=== PATIENT | female | born 1950 | race Caucasian/White ===

== ENCOUNTER 2017-01-29 17:41 | Inpatient (IN) | payer OTHER ==
[~2017-01-29] VITALS: Ht 162.6 cm; Wt 104.3 kg
[~2017-01-29 17:41] MED LIST: CLE150 PO; DOCUSATE CALCI100 MG PO; ECO81 PO; FOL1 PO; HYDROCHLOROTHIAZIDE PO; HYDROCODONE; IB PO; ISOSORBIDE DINIT5 M2 PO; KEF500 PO; KLOR-CON20 MEQ PO; LISINOPRIL HCTZ1 TAB PO; MACROBID100 MG PO; METOPROLOL SUCC25 M1 PO; NEU300 PO; PRI20 PO; QUINAPRIL PO; VITAMIN D2000 I1 PO
[2017-01-29 19:03] LABS: BASOPHIL % 0.2 % (0-2); PLATELET COUNT 141 x10^3mcL (130-400); RED CELL DISTRIBUTION WIDTH 12.9 % (11.5-14.5)
[2017-01-29 19:06] LABS: CALCIUM 8.7 mg/dL (8.5-10.1); CARBON DIOXIDE 28.8 mmol/L (21-32); CHLORIDE SERUM 106 mmol/L (98-107); CREATININE SERUM 0.5 mg/dL (0.6-1.0); GFR1 > 60 mL/min; GLUCOSE SERUM 93 mg/dL (74-106); POTASSIUM SERUM 3.4 mmol/L (3.5-5.1); SODIUM SERUM 144 mmol/L (136-145)
[2017-01-29 19:12] LABS: ALBUMIN 3.7 g/dL (3.4-5.0); ALKALINE PHOSPHATASE 124 U/L (46-116); ALT/SGPT 27 U/L (14-59); AST/SGOT 17 U/L (15-37); BILIRUBIN TOTAL 0.8 mg/dL (0.20-1.00); TOTAL PROTEIN, SERUM 7.1 g/dL (6.4-8.2)
[2017-01-29] MEDS ORDERED: NEU300 PO (20:26)
[2017-01-29] MEDS ORDERED: ASPIR 8181 MG PO (20:27)
[2017-01-29] MEDS ORDERED: D3-50001 TAB PO (20:27)
[2017-01-29] MEDS ORDERED: METOPROLOL SUC100 M2 PO (20:27)
[2017-01-29] MEDS ORDERED: NOR10T PO (20:28)
[2017-01-29 21:06] VITALS: BP 160/94
[2017-01-29 21:10] LABS: microscopic required? YES; urine erythrocyte NEGATIVE (NEGATIVE)
[2017-01-29 21:24] LABS: CHOLESTEROL/HDL RATIO 2.6
[2017-01-29 21:26] LABS: AMPHETAMINE QUAL UR NONE DETECTED (NEG <=1000)
[2017-01-29 21:31] LABS: T3 TOTAL 1.09 ng/mL
[2017-01-29 21:34] LABS: FREE T4 1.15 ng/dL (0.76-1.46); FREE THYROXINE INDEX 2.6 ug/dL (1.4-4.5); T4(THYROXINE) 7.9 ug/dL (4.7-13.3)
[2017-01-30 05:33] LABS: BASOPHIL % 0.5 % (0-2); RED CELL DISTRIBUTION WIDTH 12.9 % (11.5-14.5)
[2017-01-30 05:42] VITALS: BP 113/66
[2017-01-30 05:53] LABS: CALCIUM 8.6 mg/dL (8.5-10.1); CARBON DIOXIDE 26.8 mmol/L (21-32); CHLORIDE SERUM 108 mmol/L (98-107); CREATININE SERUM 0.4 mg/dL (0.6-1.0); GFR1 > 60 mL/min; GLUCOSE SERUM 98 mg/dL (74-106); MAGNESIUM 1.9 mg/dL (1.8-2.4); POTASSIUM SERUM 3.6 mmol/L (3.5-5.1); SODIUM SERUM 143 mmol/L (136-145)
[2017-01-30 06:37] LABS: PLATELET COUNT 122 x10^3mcL (130-400)
[2017-01-30 08:20] VITALS: BP 149/72
[2017-01-30 13:18] VITALS: BP 126/63
[2017-01-30 16:46] VITALS: BP 151/62
[2017-01-30 21:36] VITALS: BP 125/56
[2017-01-31 05:33] VITALS: BP 121/50
[2017-01-31 07:04] LABS: BASOPHIL % 0.4 % (0-2); PLATELET COUNT 140 x10^3mcL (130-400); RED CELL DISTRIBUTION WIDTH 12.7 % (11.5-14.5)
[2017-01-31 07:10] LABS: ALBUMIN 3.5 g/dL (3.4-5.0); CALCIUM 8.8 mg/dL (8.5-10.1); CHLORIDE SERUM 107 mmol/L (98-107); CREATININE SERUM 0.5 mg/dL (0.6-1.0); GFR1 > 60 mL/min; GLUCOSE SERUM 112 mg/dL (74-106); POTASSIUM SERUM 3.9 mmol/L (3.5-5.1); SODIUM SERUM 143 mmol/L (136-145)
[2017-01-31 08:06] VITALS: Ht 162.6 cm; Wt 104.3 kg
[2017-01-31 09:15] VITALS: BP 122/50
[2017-01-31] MEDS ORDERED: MOT400 PO (10:02)
[2017-01-31 10:40] VITALS: BP 122/50
== END 2017-01-31 11:49 | disposition home or self-care (01) | DRG 205 ==
LOC: ED 17:41 → DU 20:08 → MU 01-31 09:06
PROVIDERS: Emergency Medicine; Family Medicine; ADMIT Family Medicine
DX: M94.0 Chondrocostal junction syndrome [Tietze] (principal); N17.0 Acute kidney failure with tubular necrosis; D68.69 Other thrombophilia; Z68.41 Body mass index [BMI] 40.0-44.9, adult; E11.65 Type 2 diabetes mellitus with hyperglycemia; E11.40 Type 2 diabetes mellitus with diabetic neuropathy, unspecified; E11.59 Type 2 diabetes mellitus with other circulatory complications; E87.6 Hypokalemia; I10 Essential (primary) hypertension; E78.5 Hyperlipidemia, unspecified; Z85.3 Personal history of malignant neoplasm of breast; Z90.12 Acquired absence of left breast and nipple; Z79.82 Long term (current) use of aspirin; Z79.891 Long term (current) use of opiate analgesic
CPT/HCPCS: 80307; 82962; 83880; 84439; J2270; J7030; Q0092

== ENCOUNTER 2017-10-06 12:37 | Inpatient (IN) | payer OTHER ==
[~2017-10-06] VITALS: Ht 165.1 cm; Wt 105.7 kg
[~2017-10-06 12:37] MED LIST changes: +ASPIR 8181 MG PO; +D3-50001 TAB PO; +METOPROLOL SUC100 M2 PO; +MOT400 PO; +NOR10T PO
[2017-10-06 12:44] VITALS: Ht 165.1 cm; Wt 105.7 kg
[2017-10-06 14:37] LABS: BASOPHIL % 0.6 % (0-2); RED CELL DISTRIBUTION WIDTH 12.9 % (11.5-14.5)
[2017-10-06 14:50] LABS: CALCIUM 8.7 mg/dL (8.5-10.1); CARBON DIOXIDE 26.5 mmol/L (21-32); CHLORIDE SERUM 104 mmol/L (98-107); CREATININE SERUM 0.4 mg/dL (0.6-1.0); GFR1 > 60 mL/min; GLUCOSE SERUM 100 mg/dL (74-106); POTASSIUM SERUM 3.4 mmol/L (3.5-5.1); SODIUM SERUM 142 mmol/L (136-145)
[2017-10-06 14:54] LABS: ALBUMIN 3.7 g/dL (3.4-5.0); ALKALINE PHOSPHATASE 112 U/L (46-116); ALT/SGPT 26 U/L (14-59); AST/SGOT 18 U/L (15-37); BILIRUBIN TOTAL 0.8 mg/dL (0.20-1.00); CHOLESTEROL 142 mg/dL (<200); CHOLESTEROL/HDL RATIO 2.7; HDL CHOLESTEROL 53 mg/dL (40-60); LIPASE 95 IU/L (73-393); TOTAL PROTEIN, SERUM 6.9 g/dL (6.4-8.2); TRIGLYCERIDES 129 mg/dL (<150)
[2017-10-06 14:57] LABS: PLATELET COUNT 115 x10^3mcL (130-400)
[2017-10-06 15:33] LABS: microscopic required? NO
[2017-10-06 15:39] LABS: MAGNESIUM 1.8 mg/dL (1.8-2.4); PHOSPHOROUS 4.1 mg/dL (2.5-4.9)
[2017-10-06 15:47] VITALS: BP 121/75
[2017-10-06 15:48] VITALS: BP 121/75
[2017-10-06 15:51] LABS: urine erythrocyte NEGATIVE (NEGATIVE)
[2017-10-06 15:58] LABS: T3 TOTAL 1.05 ng/mL
[2017-10-06 16:01] LABS: FREE T4 1.23 ng/dL (0.76-1.46); FREE THYROXINE INDEX 3.1 ug/dL (1.4-4.5); T4(THYROXINE) 9.2 ug/dL (4.7-13.3)
[2017-10-06 16:03] LABS: AMPHETAMINE QUAL UR NONE DETECTED (NEG <=1000)
[2017-10-06] MEDS ORDERED: HYDROCHLOROTH12.5 M2 PO (19:27)
[2017-10-06] MEDS ORDERED: ATORVASTATIN CA40 M1 PO (19:27)
[2017-10-06] MEDS ORDERED: NOR10 PO (19:27)
[2017-10-06] MEDS ORDERED: METOPROLOL SUCC25 M2 PO (19:28)
[2017-10-06 21:44] VITALS: BP 124/44
[2017-10-07 05:26] VITALS: BP 126/50
[2017-10-07 06:34] LABS: CALCIUM 8.7 mg/dL (8.5-10.1); CHLORIDE SERUM 107 mmol/L (98-107); CREATININE SERUM 0.5 mg/dL (0.6-1.0); GFR1 > 60 mL/min; GLUCOSE SERUM 114 mg/dL (74-106); POTASSIUM SERUM 4.1 mmol/L (3.5-5.1); SODIUM SERUM 142 mmol/L (136-145)
[2017-10-07 06:40] LABS: PLATELET COUNT 145 x10^3mcL (130-400); RED CELL DISTRIBUTION WIDTH 12.1 % (11.5-14.5)
[2017-10-07 06:59] LABS: BASOPHIL % 2.2 % (0-2)
[2017-10-07 08:56] VITALS: BP 121/54
[2017-10-07 12:37] VITALS: BP 115/86
[2017-10-07 17:41] VITALS: BP 118/88
== END 2017-10-07 19:55 | disposition home or self-care (01) | DRG 205 ==
LOC: ED 12:37 → DU 14:47
PROVIDERS: Specialist; ADMIT Family Medicine
DX: M94.0 Chondrocostal junction syndrome [Tietze] (principal); N17.0 Acute kidney failure with tubular necrosis; E87.6 Hypokalemia; M54.5 Low back pain; G89.29 Other chronic pain; I10 Essential (primary) hypertension; Z79.82 Long term (current) use of aspirin; Z68.38 Body mass index [BMI] 38.0-38.9, adult; Z85.3 Personal history of malignant neoplasm of breast
CPT/HCPCS: 83880; 84439; 97110-GP; J1885; J2405; J3010; J7030; Q0092

== ENCOUNTER 2018-01-29 18:58 | Emergency (ER) | payer OTHER ==
[~2018-01-29] VITALS: Ht 167.6 cm; Wt 108.0 kg
[~2018-01-29 18:58] MED LIST changes: +ATORVASTATIN CA40 M1 PO; +HYDROCHLOROTH12.5 M2 PO; +METOPROLOL SUCC25 M2 PO; +NOR10 PO
[2018-01-29 19:01] VITALS: Ht 167.6 cm; Wt 108.0 kg
[2018-01-29 23:05] LABS: BASOPHIL % 0.4 % (0-2); PLATELET COUNT 141 x10^3mcL (130-400); RED CELL DISTRIBUTION WIDTH 13.3 % (11.5-14.5)
[2018-01-29 23:20] LABS: CALCIUM 8.5 mg/dL (8.5-10.1); CHLORIDE SERUM 108 mmol/L (98-107); CREATININE SERUM 0.5 mg/dL (0.6-1.0); GFR1 > 60 mL/min; GLUCOSE SERUM 106 mg/dL (74-106); POTASSIUM SERUM 3.3 mmol/L (3.5-5.1); SODIUM SERUM 143 mmol/L (136-145)
[2018-01-29 23:25] LABS: ALBUMIN 3.5 g/dL (3.4-5.0); ALKALINE PHOSPHATASE 117 U/L (46-116); ALT/SGPT 26 U/L (14-59); AST/SGOT 16 U/L (15-37); BILIRUBIN TOTAL 0.6 mg/dL (0.20-1.00); LIPASE 110 IU/L (73-393); TOTAL PROTEIN, SERUM 7.1 g/dL (6.4-8.2)
[2018-01-30 01:07] VITALS: BP 138/57
== END 2018-01-30 01:07 | disposition home or self-care (01) ==
LOC: ED 18:58
PROVIDERS: Emergency Medicine
DX: M54.5 Low back pain (principal); E87.6 Hypokalemia; I10 Essential (primary) hypertension; E78.00 Pure hypercholesterolemia, unspecified; Z88.0 Allergy status to penicillin; Z90.710 Acquired absence of both cervix and uterus; Z90.49 Acquired absence of other specified parts of digestive tract
CPT/HCPCS: 36415

== ENCOUNTER 2018-08-25 11:47 | Inpatient (IN) | payer OTHER ==
[~2018-08-25] VITALS: Ht 167.6 cm; Wt 102.1 kg
[2018-08-25 12:27] LABS: BASOPHIL % 0.5 % (0-2); PLATELET COUNT 137 x10^3mcL (130-400); RED CELL DISTRIBUTION WIDTH 12.6 % (11.5-14.5)
[2018-08-25 12:34] LABS: CALCIUM 8.5 mg/dL (8.5-10.1); CARBON DIOXIDE 28.5 mmol/L (21-32); CHLORIDE SERUM 105 mmol/L (98-107); CREATININE SERUM 0.5 mg/dL (0.6-1.0); GFR1 > 60 mL/min; GLUCOSE SERUM 109 mg/dL (74-106); POTASSIUM SERUM 3.7 mmol/L (3.5-5.1); SODIUM SERUM 140 mmol/L (136-145)
[2018-08-25 12:39] LABS: ALBUMIN 3.7 g/dL (3.4-5.0); ALKALINE PHOSPHATASE 104 U/L (46-116); ALT/SGPT 32 U/L (14-59); AST/SGOT 20 U/L (15-37); BILIRUBIN TOTAL 0.7 mg/dL (0.20-1.00); TOTAL PROTEIN, SERUM 7.5 g/dL (6.4-8.2)
[2018-08-25] MEDS ORDERED: ZESTRIL5 MG PO (13:12)
[2018-08-25] MEDS ORDERED: VITAMIN B125000 MC1 PO (13:13)
[2018-08-25] MEDS ORDERED: IBUPROFEN400 MG PO (13:14)
[2018-08-25 14:50] VITALS: BP 146/65
[2018-08-25 14:53] VITALS: Ht 167.6 cm; Wt 102.1 kg
[2018-08-25 15:08] LABS: T3 TOTAL 1.23 ng/mL
[2018-08-25 15:10] LABS: PHOSPHOROUS 3.7 mg/dL (2.5-4.9)
[2018-08-25 15:25] LABS: FREE T4 1.12 ng/dL (0.76-1.46); FREE THYROXINE INDEX 2.8 ug/dL (1.4-4.5); T4(THYROXINE) 8.4 ug/dL (4.7-13.3)
[2018-08-25 20:52] VITALS: BP 155/52
[2018-08-26 04:15] VITALS: BP 139/64
[2018-08-26 06:22] LABS: BASOPHIL % 0.4 % (0-2); RED CELL DISTRIBUTION WIDTH 12.7 % (11.5-14.5)
[2018-08-26 06:40] LABS: PLATELET COUNT 129 x10^3mcL (130-400)
[2018-08-26 06:57] LABS: CALCIUM 8.9 mg/dL (8.5-10.1); CREATININE SERUM 0.5 mg/dL (0.6-1.0); GFR1 > 60 mL/min; GLUCOSE SERUM 110 mg/dL (74-106)
[2018-08-26 07:26] LABS: CARBON DIOXIDE 28.7 mmol/L (21-32); CHLORIDE SERUM 106 mmol/L (98-107); POTASSIUM SERUM 4.1 mmol/L (3.5-5.1); SODIUM SERUM 141 mmol/L (136-145)
[2018-08-26 08:11] VITALS: BP 138/58
[2018-08-26 12:37] VITALS: BP 133/60
[2018-08-26] MEDS ORDERED: AMLODIPINE BES2.5 M1 PO (13:50)
[2018-08-26 14:06] VITALS: BP 133/60
[2018-08-26 16:24] VITALS: BP 119/50
== END 2018-08-26 18:50 | disposition home or self-care (01) | DRG 392 ==
LOC: ED 11:47 → DU 13:21
PROVIDERS: Family Medicine
DX: K21.9 Gastro-esophageal reflux disease without esophagitis (principal); I10 Essential (primary) hypertension; E11.9 Type 2 diabetes mellitus without complications; E78.5 Hyperlipidemia, unspecified; E66.9 Obesity, unspecified; Z87.891 Personal history of nicotine dependence; Z79.82 Long term (current) use of aspirin; Z92.21 Personal history of antineoplastic chemotherapy; Z85.3 Personal history of malignant neoplasm of breast; M81.0 Age-related osteoporosis without current pathological fracture; Z79.1 Long term (current) use of non-steroidal anti-inflammatories (NSAID)
CPT/HCPCS: 83880; 84439; J1644; Q0092